=== PATIENT | female | born 1990 | race Two or more races ===

== ENCOUNTER 2018-08-19 07:40 | Emergency (ER) | payer OTHER ==
[~2018-08-19] VITALS: Ht 162.6 cm; Wt 100.0 kg
[2018-08-19] MEDS ORDERED: ERGO400C PO (07:57)
[2018-08-19] MEDS ORDERED: BACITRACIN ZINC OINT UDPKT TOP ONE ×2 (09:45)
[2018-08-19] MEDS ORDERED: TETANUS, DIPHTHERIA, PERTUSSIS VAC/PF 0.5ML (>7YR OLD) IM ONE (09:45)
[2018-08-19] MEDS ORDERED: LIDOCAINE HCL 1% 20ML VIAL (Pyxis) INJ INFIL ONE (09:45)
[2018-08-19] MEDS ORDERED: HYDROCODONE/ACETAMINOPHEN 5/325MG TABLET PO ONE (09:45)
[2018-08-19 11:40] VITALS: BP 140/88
== END 2018-08-19 11:44 | disposition home or self-care (01) ==
LOC: ER 07:40
DX: S01.511A Laceration without foreign body of lip, initial encounter (principal); W54.0XXA Bitten by dog, initial encounter; Y93.89 Activity, other specified; Y92.89 Other specified places as the place of occurrence of the external cause; Y99.8 Other external cause status
CPT/HCPCS: 12011; 90471; 90715; 99283; J3490; Z7610

== ENCOUNTER 2022-05-27 16:54 | Emergency (ER) | payer BC, MEDICAID, OTHER ==
[~2022-05-27] VITALS: Ht 162.6 cm; Wt 103.0 kg
[~2022-05-27 16:54] MED LIST: ERGO400C PO
[2022-05-27 17:00] VITALS: BP 142/104
[2022-05-27 17:32] LABS: CLARITY URINE CLOUDY (CLEAR); COLOR URINE YELLOW (YELLOW); KETONES URINE NEGATIVE (NEGATIVE); LEUKOCYTE ESTERASE URINE 2+ (NEGATIVE); NITRITE URINE NEGATIVE (NEGATIVE); OCCULT BLOOD URINE 3+ (NEGATIVE); PH URINE 5.5 (4.5-8.0); PROTEIN URINE NEGATIVE (NEGATIVE); SPECIFIC GRAVITY URINE 1.024 (1.005-1.030); UROBILINOGEN URINE 0.2 E.U./dL (0.2-1.0)
[2022-05-27 20:37] LABS: BASOPHILS % 0.2 % (0.0-2.0); HEMATOCRIT. 37.9 % (36.0-48.0); LYMPHOCYTES % 51.7 % (20.0-50.0); MEAN CORPUSCULAR VOLUME 81.5 fL (81.0-99.0); MEAN PLATELET VOLUME 8.5 fl (7.4-10.4); MONOCYTES % 3.5 % (2.0-8.0); NEUTROPHILS % 42.6 % (40.0-76.0); PLATELET 358 x1000/uL (130-400); RED BLOOD CELL COUNT 4.65 mill/uL (4.2-5.4); RED CELL DISTRIBUTION WIDTH 13.5 % (11.6-14.6)
[2022-05-27 20:40] LABS: CHLORIDE 101 mEq/L (98-107)
[2022-05-27] MEDS ORDERED: CEFTRIAXONE 1 G PREMIX 50 ML IV ONE (21:00)
[2022-05-27] MEDS ORDERED: IBUP-2028 MT (21:09)
[2022-05-27] MEDS ORDERED: TOPUD PO (21:09)
[2022-05-27] MEDS ORDERED: CEFP200T13 MT (21:09)
== END 2022-05-27 21:39 | disposition home or self-care (01) ==
LOC: ER 16:54
DX: N39.0 Urinary tract infection, site not specified (principal); N12 Tubulo-interstitial nephritis, not specified as acute or chronic; Z79.899 Other long term (current) drug therapy
CPT/HCPCS: 36415; 80053; 81003; 81025; 85025; 96374; 99283; J0696

== ENCOUNTER 2025-03-14 09:34 | Emergency (ER) | payer BC ==
[~2025-03-14] VITALS: Ht 172.7 cm; Wt 100.0 kg
[~2025-03-14 09:34] MED LIST changes: +CEFP200T13 MT; +IBUP-2028 MT; +TOPUD PO
[2025-03-14 09:37] VITALS: O2SAT 99
[2025-03-14 09:40] VITALS: BP 161/83; PULSE 97; RESP 15; TEMP 37.2; O2SAT 100
== END 2025-03-14 10:42 | disposition home or self-care (01) ==
LOC: ER 09:34
DX: M25.562 Pain in left knee (principal); M25.571 Pain in right ankle and joints of right foot; Z79.899 Other long term (current) drug therapy; Z91.018 Allergy to other foods; W19.XXXA Unspecified fall, initial encounter; Y93.89 Activity, other specified; Y92.89 Other specified places as the place of occurrence of the external cause; Y99.8 Other external cause status
CPT/HCPCS: 29505; 73564; 73610; 99284